=== PATIENT | female | born 1980 | race Caucasian/White ===

== ENCOUNTER → 2016-07-24 | Outpatient (CLI) | payer MEDICAID | END | disposition disaster alternative care site (69) | LOC: GAMB 21:37 | DX: Z73.3 Stress, not elsewhere classified (principal); R69 Illness, unspecified | CPT/HCPCS: A0425; A0429 ==

== ENCOUNTER 2016-09-02 00:27 | Emergency (ER) | payer MEDICAID ==
--- NOTE | ~2016-09-02 | ER ---
PATIENT'S NAME: [facility] AGE: 36 Y [address] ROOM: [place] [id number] LOCATION: [facility] ADMIT DATE: 09/02/2016 ER/Outpatient Report DISCHARGE DATE: 09/02/2016 FAMILY PHYSICIAN: Rohith Garrison MD ATTENDING PHYSICIAN: Jens Garcia Admission date and time are documented on the medical record. I saw the patient at 0040 hours. CHIEF COMPLAINT: Chilling, feels cold, and bruising on her extremities. HISTORY OF PRESENT ILLNESS: This patient is a 36-year-old female who over the past 24 hours has had chills without fever, feels cold, she has some bruising on her anterior thighs bilaterally. No fall or trauma. She has had some urinary frequency. No dysuria. No chest pain or shortness of breath. No abdominal pain, nausea, vomiting, or diarrhea. No lightheadedness or dizziness. No fall or trauma. History of ADHD and seizure disorder. She has depression, anxiety, and bipolar disorder. History of hypothyroidism. HOME MEDICATIONS: See attached medication list. ALLERGIES: NONE. SOCIAL HISTORY: Nonsmoker, nondrinker. 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 OPERATIONS: Eye surgery. REVIEW OF SYSTEMS: All systems reviewed by me are negative with the exception of those discussed in the history of present illness. PHYSICAL EXAMINATION: VITAL SIGNS: Temperature 99, pulse 93, blood pressure 184/99, and O2 sat on room air is 98%. HEAD: Normocephalic. PATIENT'S NAME: [facility] AGE: 36 Y [address] ROOM: [place], [place] [address] LOCATION: [facility] ADMIT DATE: 09/02/2016 ER/Outpatient Report DISCHARGE DATE: 09/02/2016 FAMILY PHYSICIAN: Rohith Garrison MD ATTENDING PHYSICIAN: Jens Garcia EYES: Clear. EARS: Clear TMs bilaterally. NOSE AND THROAT: Clear. Mucous membranes moist. NECK: Negative. SPINE: Negative. LUNGS: Clear. Good airflow. No rales, rhonchi, or wheezes. HEART: Regular. Pulses are palpable. ABDOMEN: Soft, nontender. Active bowel tones. No organomegaly or abnormal mass palpable. EXTREMITIES: Intact. NEUROVASCULAR: Intact. SKIN: Clear. No skin eruptions or rashes. She does have a few little dime- sized bruises on her anterior right thigh. LABORATORY DATA: CMS was normal except for an elevated glucose 102, CRP was 1.34, free T4 was 1.2, TSH was 0.178. Urinalysis was clear. Lactate was 1.1. White count was 8200, 67 segs, 23 lymphs, 8 monos, 1 eo, 1 baso, hemoglobin was 13.8 with hematocrit 42.6, and platelet count is 303,000. IMPRESSION: 1. Chills, feels cold, no evidence of infective process. 2. Hypothyroidism. 3. Anxiety and depression with attention deficit hyperactivity disorder. PLAN: The patient dismissed home. Observation. Activity as tolerated. Fluids and diet as tolerated. Continue present home medications and care. Follow up with personal physician as needed. JENS GARCIA MD SDS/modl /[id number] d: 09/02/16 0409 t: 09/02/16 1809, OUTPATIENT REPORT
[2016-09-02 00:59] LABS: BASOPHIL # 0.1 K/uL (0.0-0.2); BASOPHIL % 0.9 %; EOSINOPHIL # 0.1 K/uL (0.0-0.5); EOSINOPHIL % 1.3 %; HEMATOCRIT 42.6 % (33.0-46.0); HEMOGLOBIN 13.8 g/dL (11.0-15.0); IMMATURE GRANULOCYTE % 0.4 %; LYMPHOCYTE # 1.9 K/uL (0.8-4.0); LYMPHOCYTE % 22.6 %; MCH 28.3 pg (27.0-34.0); MCHC 32.4 gm/dL (32.0-36.5); MCV 87.5 fl (83.0-98.0); MONOCYTE # 0.6 K/uL (0.0-1.0); MONOCYTE % 7.7 %; MPV 9.3 fl (9.4-12.4); NEUTROPHIL # (ANC) 5.5 K/uL (1.8-7.8); NEUTROPHIL % 67.1 %; NRBC % 0 /100WBC (0-0.00); PLATELET COUNT 303 K/uL (150-450); RBC 4.87 M/uL (3.50-5.50); RDW-CV 13.3 % (11.9-14.6); WBC 8.2 K/uL (4.0-11.0)
[2016-09-02 01:15] LABS: BILIRUBIN URINE NEGATIVE (NEGATIVE); BLOOD URINE NEGATIVE /UL (NEGATIVE); COLOR URINE YELLOW (YELLOW); GLUCOSE URINE NEGATIVE (NEGATIVE); KETONE URINE NEGATIVE (NEGATIVE); LEUKOCYTES URINE NEGATIVE /UL (NEGATIVE); NITRITE URINE NEGATIVE (NEGATIVE); PROTEIN URINE NEGATIVE (NEGATIVE); SPEC GRAVITY URINE 1.015 (1.003-1.035); TURBIDITY URINE CLEAR (CLEAR); UROBILINOGEN URINE NORMAL (NORMAL)
[2016-09-02 01:26] LABS: ALBUMIN 3.3 gm/dL (3.5-5.0); ALK PHOS 91 IU/L (33-138); ALT 37 IU/L (12-78); ANION GAP 10.1 (10.0-19.0); AST 23 IU/L (10-40); BLOOD UREA NITROGEN 7 mg/dL (6-24); CALCIUM 8.5 mg/dL (8.5-10.5); CHLORIDE 110 mMol/L (96-110); CO2 25 mMol/L (22-32); CREATININE 0.8 mg/dL (0.5-1.1); ESTIMATED GFR (MDRD EQUATION) > 60; POTASSIUM 4.1 mMol/L (3.7-5.1); SODIUM 141 mMol/L (135-145)
[2016-09-02 01:30] LABS: TOTAL BILIRUBIN 0.2 mg/dL (0.0-1.5)
== END 2016-09-02 01:41 | disposition disaster alternative care site (69) ==
LOC: GMED 00:27
PROVIDERS: Emergency Medicine
DX: R68.83 Chills (without fever) (principal); E03.9 Hypothyroidism, unspecified; F41.9 Anxiety disorder, unspecified; F32.9 Major depressive disorder, single episode, unspecified; F90.9 Attention-deficit hyperactivity disorder, unspecified type; G40.909 Epilepsy, unspecified, not intractable, without status epilepticus; Z98.890 Other specified postprocedural states; Z79.899 Other long term (current) drug therapy

== ENCOUNTER → 2016-09-02 | Outpatient (CLI) | payer MEDICAID | END | disposition disaster alternative care site (69) | LOC: GAMB 00:17 | DX: R46.2 Strange and inexplicable behavior (principal); G40.909 Epilepsy, unspecified, not intractable, without status epilepticus; Z79.899 Other long term (current) drug therapy | CPT/HCPCS: A0425; A0429 ==

== ENCOUNTER 2016-09-25 23:16 | Emergency (ER) | payer MEDICAID ==
--- NOTE | ~2016-09-25 | ER ---
PATIENT'S NAME: [facility] AGE: 36 Y [address] ROOM: [place] [address] LOCATION: [facility] ADMIT DATE: 09/25/2016 ER/Outpatient Report DISCHARGE DATE: FAMILY PHYSICIAN: Rohith Garrison MD ATTENDING PHYSICIAN: Mariya Crandall Time of Arrival: 2316 hours. Time of Evaluation: 2355 hours. CHIEF COMPLAINT: This is a 36-year-old female, previously healthy, in with multiple complaints. She states that she has had menstrual cramps for the past 3 or 4 days. Her period was a month late. She complains of decreased appetite, change in the flavor of food. PAST MEDICAL HISTORY: Significant for ADHD and obesity. CURRENT MEDICATIONS: Please see list. REVIEW OF SYSTEMS: Otherwise negative. SOCIAL HISTORY: She states she is a nonsmoker. PHYSICAL EXAMINATION: GENERAL: Alert, obese female. No acute distress. VITAL SIGNS: Stable. SKIN: Warm and dry. Color is normal. HEAD, EARS, EYES, NOSE, AND THROAT: Normal. NECK: Supple. HEART AND LUNGS: Normal. ABDOMEN: Soft and nontender. EXTREMITIES: Normal. NEUROLOGIC: Normal. ASSESSMENT: Menstrual cramps. PLAN: Follow up with her regular doctor as needed. Urinalysis was negative. Urine was negative. PATIENT'S NAME: [facility] AGE: 36 Y [address] ROOM: [place] [address] LOCATION: [facility] ADMIT DATE: 09/25/2016 ER/Outpatient Report DISCHARGE DATE: FAMILY PHYSICIAN: Rohith Garrison MD ATTENDING PHYSICIAN: Mariya Crandall LABORATORY DATA: CBC and metabolic panel were unremarkable. MARIYA CRANDALL MD JDB/modl /[id number] d: 09/26/16 0336 t: 09/26/16 0601, OUTPATIENT REPORT
[2016-09-26 00:10] LABS: BASOPHIL # 0.1 K/uL (0.0-0.2); BASOPHIL % 0.6 %; EOSINOPHIL # 0.1 K/uL (0.0-0.5); EOSINOPHIL % 0.8 %; HEMATOCRIT 44.5 % (33.0-46.0); HEMOGLOBIN 14.5 g/dL (11.0-15.0); IMMATURE GRANULOCYTE % 0.3 %; LYMPHOCYTE % 16.4 %; MCH 28.4 pg (27.0-34.0); MCHC 32.6 gm/dL (32.0-36.5); MCV 87.1 fl (83.0-98.0); MONOCYTE # 0.8 K/uL (0.0-1.0); MONOCYTE % 6.2 %; MPV 9.4 fl (9.4-12.4); NEUTROPHIL # (ANC) 9.4 K/uL (1.8-7.8); NEUTROPHIL % 75.7 %; NRBC % 0 /100WBC (0-0.00); PLATELET COUNT 322 K/uL (150-450); RBC 5.11 M/uL (3.50-5.50); RDW-CV 13.4 % (11.9-14.6); WBC 12.4 K/uL (4.0-11.0)
[2016-09-26 00:16] LABS: BILIRUBIN URINE NEGATIVE (NEGATIVE); BLOOD URINE 250 /UL (NEGATIVE); GLUCOSE URINE NEGATIVE (NEGATIVE); KETONE URINE NEGATIVE (NEGATIVE); LEUKOCYTES URINE 25 /UL (NEGATIVE); NITRITE URINE POSITIVE (NEGATIVE); PROTEIN URINE 30 mg/dL (NEGATIVE); SPEC GRAVITY URINE 1.025 (1.003-1.035); UROBILINOGEN URINE 4 mg/dL (NORMAL)
[2016-09-26 00:18] LABS: COLOR URINE YELLOW (YELLOW); TURBIDITY URINE CLEAR (CLEAR)
[2016-09-26 00:24] LABS: WBC URINE 0-2 #/HPF (NEGATIVE)
[2016-09-26 00:25] LABS: BACTERIA URINE FEW (NEGATIVE); MUCUS URINE 1+ (NEGATIVE)
[2016-09-26 00:26] LABS: ALBUMIN 3.8 gm/dL (3.5-5.0); ALK PHOS 98 IU/L (33-138); ALT 41 IU/L (12-78); ANION GAP 12.3 (10.0-19.0); AST 25 IU/L (10-40); BLOOD UREA NITROGEN 10 mg/dL (6-24); CHLORIDE 110 mMol/L (96-110); CO2 24 mMol/L (22-32); CREATININE 0.8 mg/dL (0.5-1.1); ESTIMATED GFR (MDRD EQUATION) > 60; POTASSIUM 4.3 mMol/L (3.7-5.1); SODIUM 142 mMol/L (135-145); TOTAL PROTEIN 7.6 g/dL (6.0-8.4)
[2016-09-26 00:27] LABS: TOTAL BILIRUBIN 0.4 mg/dL (0.0-1.5)
== END 2016-09-26 00:59 | disposition disaster alternative care site (69) ==
LOC: GMED 23:16
PROVIDERS: Emergency Medicine
DX: N94.6 Dysmenorrhea, unspecified (principal); F90.9 Attention-deficit hyperactivity disorder, unspecified type; E66.9 Obesity, unspecified; Z88.6 Allergy status to analgesic agent; Z79.899 Other long term (current) drug therapy

== ENCOUNTER → 2016-10-22 | Outpatient (CLI) | payer MEDICAID | END | disposition disaster alternative care site (69) | LOC: GRAD 09:10 | DX: R51 Headache (principal); J32.2 Chronic ethmoidal sinusitis ==